=== PATIENT | male | born 1945 | race Caucasian/White ===

== ENCOUNTER 2020-02-27 11:38 | Inpatient (IN) | payer MEDICARE, OTHER ==
[~2020-02-27] VITALS: Ht 180.3 cm; Wt 104.5 kg
[2020-02-27 11:56] LABS: BASOPHILS % (AUTO) 1 % (0-10); EOSINOPHILS % (AUTO) 5 % (0-10); HEMATOCRIT 47 % (40-54); HEMOGLOBIN 15.5 G/DL (13.3-17.7); LYMPHOCYTES % (AUTO) 22 % (12-44); MEAN CORPUSCULAR HEMOGLOBIN 30 PG (25-34); MEAN CORPUSCULAR HGB CONC 33 G/DL (32-36); MEAN CORPUSCULAR VOLUME 90 FL (80-99); MEAN PLATELET VOLUME 10.6 FL (7.4-10.4); MONOCYTES % (AUTO) 10 % (0-12); NEUTROPHILS % (AUTO) 62 % (42-75); PLATELET COUNT 324 10^3/uL (130-400); WHITE BLOOD COUNT 7.4 10^3/uL (4.3-11.0)
[2020-02-27 11:57] LABS: BASOPHILS # (AUTO) 0.1 10^3/uL (0.0-0.1); EOSINOPHILS # (AUTO) 0.3 10^3/uL (0.0-0.3); LYMPHOCYTES # (AUTO) 1.6 X 10^3 (1.0-4.0); MONOCYTES # (AUTO) 0.7 X 10^3 (0.0-1.0); NEUTROPHILS # (AUTO) 4.6 X 10^3 (1.8-7.8)
[2020-02-27 12:10] LABS: INR 0.9 (0.8-1.4); PROTHROMBIN TIME PATIENT 12.6 SEC (12.2-14.7)
[2020-02-27 12:11] LABS: ALANINE AMINOTRANSFERASE 13 U/L (0-55); ALBUMIN 4.1 GM/DL (3.2-4.5); ALKALINE PHOSPHATASE 109 U/L (40-136); BILIRUBIN,TOTAL 0.4 MG/DL (0.1-1.0); BUN/CREATININE RATIO 17; CALCIUM 8.7 MG/DL (8.5-10.1); CARBON DIOXIDE 24 MMOL/L (21-32); CHLORIDE 107 MMOL/L (98-107); CREATININE SERUM 1.15 MG/DL (0.60-1.30); GFR ESTIMATED > 60; GLUCOSE 98 MG/DL (70-105); POTASSIUM 4.4 MMOL/L (3.6-5.0); SODIUM 140 MMOL/L (135-145); TOTAL PROTEIN 6.7 GM/DL (6.4-8.2)
--- NOTE | 2020-02-27 12:15 | Diagnostic Imaging Report ---
PROCEDURE: CT head without contrast. TECHNIQUE: Multiple contiguous axial images were obtained through the brain without the use of intravenous contrast. Auto Exposure Controls were utilized during the CT exam to meet ALARA standards for radiation dose reduction. INDICATION: Stroke. COMPARISON: None. FINDINGS: No intracranial hemorrhage, mass effect, hydrocephalus or extra-axial fluid collections. No CT evidence of a territorial infarction. Osseous structures are intact. Visualized paranasal sinuses and mastoids are clear. IMPRESSION: No acute intracranial CT findings. Dictated by: Dictated on workstation # [id number]
--- NOTE | 2020-02-27 13:44 | ED General ---
General Chief Complaint: Neuro-Stroke Like Symptoms Stated Complaint: STROKE LIKE SYMPTOMS Nursing Triage Note: brought to ED by EMS. began having slurred speech and aphasia and right hand weakness. EMS reports that aphasia resolved after their arrival. Was given 3 baby aspirins by family prior to ems arrival. EmS started two IV's while transporting. Blood glucose 140. Nursing Sepsis Screen: No Definite Risk Source of Information: Patient, EMS History of Present Illness Date Seen by Provider: Feb 27, 2020 Time Seen by Provider: 11:40 Initial Comments Patient is a 75-year-old male who presents with acute onset headache dysarthria and left facial droop starting approximately 9 AM this morning. Patient's symptoms have not improved. Denies headache, blurred vision, difficulty swallowing, extremity weakness or loss of sensation or loss of balance. Patient did report difficulty coordinating and use earlier today which has resolved. No history of CVA, hypertension, diabetes, CAD, arrhythmia or valvular heart disease. No other acute symptoms or complaints. Timing/Duration: 1-3 Hours Severity: Moderate Modifying Factors: improves with Other Allergies and Home Medications Allergies Coded Allergies: codeine (Verified Allergy, Unknown, rash , 02/27/20) Patient Home Medication List Home Medication List Reviewed: Yes Review of Systems Review of Systems Constitutional: no symptoms reported EENTM: no symptoms reported Respiratory: no symptoms reported Cardiovascular: no symptoms reported Gastrointestinal: no symptoms reported Genitourinary: no symptoms reported Musculoskeletal: no symptoms reported Skin: no symptoms reported Hematologic/Lymphatic: No Symptoms Reported Immunological/Allergic: no symptoms reported Past Vbemacb-Hgdjjq-Nqndxu Hx Past Med/Social Hx: Reviewed Nursing Past Med/Soc Hx Patient Social History Alcohol Use: Denies Use Recreational Drug Use: No Smoking Status: Former Smoker Former Smoker, Quit: Mar 03, 1984 2nd Hand Smoke Exposure: No Recent Foreign Travel: No Contact w/Someone Who Travel: No Recent Infectious Disease Expo: No Recent Hopitalizations: No Physical Abuse: No Sexual Abuse: No Mistreated: No Fear: No Seasonal Allergies Seasonal Allergies: No Past Medical History Surgeries: No Respiratory: No Cardiac: Yes Hypertension Neurological: No Genitourinary: Yes Benign Prostatic Hyperpl Gastrointestinal: No Musculoskeletal: No Endocrine: No HEENT: No Cancer: No Psychosocial: No Integumentary: No Physical Exam Vital Signs Vital Signs - First Documented 02/27/20 11:55 Temp 37.1 Pulse 67 Resp 20 B/P (MAP) 190/104 (132) Pulse Ox 95 Capillary Refill : Less Than 3 Seconds Height, Weight, BMI Height: '" Weight: lbs. oz. kg; BMI Method: General Appearance: No Apparent Distress, WD/WN Eyes: Bilateral Eye Normal Inspection, Bilateral Eye PERRL, Bilateral Eye EOMI HEENT: PERRL/EOMI, Normal ENT Inspection, Pharynx Normal Neck: Full Range of Motion, Non Tender, Supple Respiratory: Chest Non Tender, Lungs Clear Cardiovascular: Regular Rate, Rhythm Gastrointestinal: Non Tender, Soft Back: Normal Inspection, No CVA Tenderness Neurologic/Psychiatric: Alert, Other (dysarthria, right facial droop, NIH stroke score to per stroke assessment.) Skin: Normal Color Lymphatic: No Adenopathy, Axilla Node Tender (L) Focused Exam Sepsis Stage: Ruled Out Progress/Results/Core Measures Suspected Sepsis Recent Fever Within 48 Hours: No Infection Criteria Present: None New/Unexplained Altered Menta: No Sepsis Screen: No Definite Risk SIRS Temperature: Pulse: 67 Respiratory Rate: 20 Laboratory Tests 02/27/20 11:48: White Blood Count 7.4 Blood Pressure 190 /104 Mean: 132 Laboratory Tests 02/27/20 11:48: Creatinine 1.15, INR Comment 0.9, Platelet Count 324, Total Bilirubin 0.4 Results/Orders Lab Results Laboratory Tests Test 02/27/20 11:48 Range/Units White Blood Count 7.4 4.3-11.0 10^3/uL Red Blood Count 5.25 4.35-5.85 10^6/uL Hemoglobin 15.5 13.3-17.7 G/DL Hematocrit 47 40-54 % Mean Corpuscular Volume 90 80-99 FL Mean Corpuscular Hemoglobin 30 25-34 PG Mean Corpuscular Hemoglobin Concent 33 32-36 G/DL Red Cell Distribution Width 13.0 10.0-14.5 % Platelet Count 324 130-400 10^3/uL Mean Platelet Volume 10.6 H 7.4-10.4 FL Immature Granulocyte % (Auto) 0 % Neutrophils (%) (Auto) 62 42-75 % Lymphocytes (%) (Auto) 22 12-44 % Monocytes (%) (Auto) 10 0-12 % Eosinophils (%) (Auto) 5 0-10 % Basophils (%) (Auto) 1 0-10 % Neutrophils # (Auto) 4.6 1.8-7.8 X 10^3 Lymphocytes # (Auto) 1.6 1.0-4.0 X 10^3 Monocytes # (Auto) 0.7 0.0-1.0 X 10^3 Eosinophils # (Auto) 0.3 0.0-0.3 10^3/uL Basophils # (Auto) 0.1 0.0-0.1 10^3/uL Immature Granulocyte # (Auto) 0.0 0.0-0.1 10^3/uL Prothrombin Time 12.6 12.2-14.7 SEC INR Comment 0.9 0.8-1.4 Sodium Level 140 135-145 MMOL/L Potassium Level 4.4 3.6-5.0 MMOL/L Chloride Level 107 98-107 MMOL/L Carbon Dioxide Level 24 21-32 MMOL/L Anion Gap 9 5-14 MMOL/L Blood Urea Nitrogen 20 H 7-18 MG/DL Creatinine 1.15 0.60-1.30 MG/DL Estimat Glomerular Filtration Rate > 60 BUN/Creatinine Ratio 17 Glucose Level 98 70-105 MG/DL Calcium Level 8.7 8.5-10.1 MG/DL Corrected Calcium 8.6 8.5-10.1 MG/DL Total Bilirubin 0.4 0.1-1.0 MG/DL Aspartate Amino Transf (AST/SGOT) 17 5-34 U/L Alanine Aminotransferase (ALT/SGPT) 13 0-55 U/L Alkaline Phosphatase 109 40-136 U/L Total Protein 6.7 6.4-8.2 GM/DL Albumin 4.1 3.2-4.5 GM/DL My Orders Orders - AGATA PENA DO Cbc With Automated Diff (02/27/20 11:45) Comprehensive Metabolic Panel (02/27/20 11:45) Ct Head Wo (02/27/20 11:45) Ekg Tracing (02/27/20 11:45) Protime With Inr (02/27/20 11:45) Vital Signs/I&O 02/27/20 11:55 Temp 37.1 Pulse 67 Resp 20 B/P (MAP) 190/104 (132) Pulse Ox 95 Capillary Refill : Less Than 3 Seconds Blood Pressure Mean: 132 Departure Communication (Admissions) CT head: No acute disease per radiology report EKG: Normal sinus rhythm reviewed Lab, EKG imaging studies reviewed nondiagnostic NIH stroke score of 2. Patient does not make diagnostic criteria for administration of TPA. No progression of neurologic symptoms while in the emergency department. Vital signs remained stable. Patient accepted to [facility] per Dr. Ruiz at approximately 1300. Impression Primary Impression: Stroke Disposition: ADMITTED INPATIENT Condition: Stable Admissions Decision to Admit Reason: Admit from ER (General) Decision to Admit/Date: Feb 27, 2020 Time/Decision to Admit Time: 13:00 Departure-Patient Inst. Referrals: TK ZAMAN MD (PCP/Family) Primary Care Physician AGATA PENA DO Feb 27, 2020 13:44
[2020-02-27 15:00] VITALS: BP 180/100
--- NOTE | 2020-02-27 15:00 | NUR ---
TIGRE RUBALCAVA admitted to room 405-1, with an admitting diagnosis of POSSIBLE CVA, on 02/27/20 from ED via ED, accompanied by [facility].TIGRE RUBALCAVA introduced to surroundings, call light, bed controls, phone, TV, temperature control, lights, meal times, smoking policy, visitor policy, side rail policy, bathrooms and showers. Patient Rights given to patient in the handbook. TIGRE RUBALCAVA verbalizes understanding that [facility] [place] is not responsible for the loss or damage to any personal effects or valuables that are kept in the patients posession during their hospitalization.
[2020-02-27] MEDS ORDERED: ATEN25TA PO (15:24)
[2020-02-27] MEDS ORDERED: TAMSULOSIN PO (15:24)
[2020-02-27] MEDS ORDERED: amLODIPine 5 MG (NORVASC) TAB PO NR (15:30)
[2020-02-27] MEDS ORDERED: amLODIPine 5 MG (NORVASC) TAB ONE (15:34)
[2020-02-27] MEDS ORDERED: CATHETER FLUSH 10 ML SYR IV PRN (15:45)
[2020-02-27 15:52] VITALS: BP 180/100
[2020-02-27 15:55] VITALS: BP 180/100
[2020-02-27] MEDS: D5 1/2 NS 1000 ML IV SOLUTION 1,000 ML IV SCH (16:24)
--- NOTE | 2020-02-27 16:30 | NUR ---
PT'S ADMITTING BP WAS 188/113 BY AUTO CUFF. RN TOOK BP MANUALLY ON LEFT ARM AND GOT 180/100. DR FU NOTIFIED AND SHE ORDERED 5 MG NORVASC PO ONE TIME. RN ADMIN THIS MED. AT 1630 BP MANUALLY IS 156/100. PT DENIES HEADACHE, N/V, WEAKNESS. 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 PT DOES SAY UPPER RT LIP IS NUMB. HE WAS ABLE TO SWALLOW NORVASC PILL WITH NO DIFFICULTY, HOWEVER HE DID HAVE WATER DRIBBLE OUT OF MOUTH TO CLOTHING.
[2020-02-27 16:56] VITALS: BP 156/100
[2020-02-27] MEDS ORDERED: CALCIUM CARBONATE 500 MG (TUMS) TAB.CHEW PO PRN (17:30)
[2020-02-27] MEDS ORDERED: MELATONIN 3 MG TABLET PO PRN (17:30)
[2020-02-27] MEDS ORDERED: ACETAMINOPHEN 500 MG TAB (TYLENOL) PO PRN (17:30)
[2020-02-27] MEDS ORDERED: ALPRAZolam 0.25 MG (XANAX) TAB PO PRN (17:30)
[2020-02-27] MEDS ORDERED: LOPERAMIDE 2 MG (IMODIUM) TABLET PO PRN (17:30)
[2020-02-27] MEDS ORDERED: morphine INJ 10 MG/ML 1ML (SYR OR VIAL) IVP PRN (17:30)
[2020-02-27] MEDS ORDERED: diphenhydrAMINE 25 MG TAB (BENADRYL) PO PRN (17:30)
[2020-02-27] MEDS ORDERED: DOCUSATE SODIUM 100 MG (COLACE) CAP PO PRN (17:30)
[2020-02-27] MEDS ORDERED: HYDROcodone/APAP 5 MG/325 MG (LORTAB) TAB PO PRN (17:30)
--- NOTE | 2020-02-27 17:43 | NUR ---
TECH FROM MRI CALLED AND REPORTED THAT THERE IS NO CARRIER BLOWER AVAILABLE TONIGHT AND MRI WILL HAVE TO BE DONE IN MORNING. DR FU NOTIFIED AND SHE REPORTED SHE DID NOT NEED MRI TONIGHT AND THAT SHE ORDERED MRI FOR TOMORROW.
[2020-02-27 20:58] VITALS: BP 171/92
[2020-02-27] MEDS ORDERED: ENOXAPARIN 40 MG/0.4 ML (LOVENOX) SYR SC SCH (21:00)
[2020-02-27] MEDS: SENNA W/DOCUSATE (SENOKOT S) TABLET PO SCH (21:14)
[2020-02-28] VITALS (7 sets, daily range): BP systolic 142–182; BP diastolic 88–100
--- NOTE | 2020-02-28 00:40 | NUR ---
THIS RN CONTACTED DR FU AND NOTIFIED HER OF PATIENT BP 182/97 AND THAT PRN MORPHINE AND HYDROCODONE ORDERS REMAIN UNVERIFIED BY PHARMACY DUE TO PATIENTS CODEINE ALLERGY. PATIENT STATES HE HAS NEVER TAKEN EITHER OF THESE MEDS BEFORE, DENIES ANY PAIN AT THIS TIME. DR FU GAVE ORDERS FOR NORVASC 5MG ONCE NOW WELL CLONIDINE 0.1MG PO Q4HR PRN FOR SBP >170. NORVASC ADMINISTERED BY THIS RN, SEE MAR.
[2020-02-28] MEDS ORDERED: amLODIPine 5 MG (NORVASC) TAB PO ONE (01:00)
[2020-02-28] MEDS: D5 1/2 NS 1000 ML IV SOLUTION 1,000 ML IV SCH (01:23)
[2020-02-28] MEDS: cloNIDine 0.1 MG (CATAPRES) TAB PO PRN ×2 (03:37→08:42)
[2020-02-28 05:16] LABS: BASOPHILS # (AUTO) 0.1 10^3/uL (0.0-0.1); BASOPHILS % (AUTO) 1 % (0-10); EOSINOPHILS # (AUTO) 0.2 10^3/uL (0.0-0.3); EOSINOPHILS % (AUTO) 4 % (0-10); HEMATOCRIT 47 % (40-54); HEMOGLOBIN 15.2 g/dL (13.3-17.7); LYMPHOCYTES # (AUTO) 1.6 10^3/uL (1.0-4.0); LYMPHOCYTES % (AUTO) 26 % (12-44); MEAN CORPUSCULAR HEMOGLOBIN 30 pg (25-34); MEAN CORPUSCULAR HGB CONC 33 g/dL (32-36); MEAN CORPUSCULAR VOLUME 91 fL (80-99); MEAN PLATELET VOLUME 10.8 fL (9.0-12.2); MONOCYTES # (AUTO) 0.6 10^3/uL (0.0-1.0); MONOCYTES % (AUTO) 10 % (0-12); NEUTROPHILS # (AUTO) 3.8 10^3/uL (1.8-7.8); NEUTROPHILS % (AUTO) 60 % (42-75); PLATELET COUNT 322 10^3/uL (130-400); WHITE BLOOD COUNT 6.4 10^3/uL (4.3-11.0)
[2020-02-28 05:28] LABS: BAND NEUTROPHILS 4 %; EOSINOPHILS % (MANUAL) 2 %; LYMPHOCYTES % (MANUAL) 19 %; MONOCYTES % (MANUAL) 10 %; NEUTROPHILS % (MANUAL) 65 %; RBC MORPH NORMAL
[2020-02-28 05:36] LABS: ALANINE AMINOTRANSFERASE 11 U/L (0-55); ALBUMIN 3.7 GM/DL (3.2-4.5); ALKALINE PHOSPHATASE 103 U/L (40-136); BILIRUBIN,TOTAL 0.8 MG/DL (0.1-1.0); BUN/CREATININE RATIO 16; CALCIUM 8.4 MG/DL (8.5-10.1); CARBON DIOXIDE 23 MMOL/L (21-32); CHLORIDE 111 MMOL/L (98-107); CHOLESTEROL 186 MG/DL (< 200); CREATININE SERUM 0.95 MG/DL (0.60-1.30); GFR ESTIMATED > 60; GLUCOSE 107 MG/DL (70-105); HDL CHOLESTEROL 35 MG/DL (40-60); POTASSIUM 3.8 MMOL/L (3.6-5.0); SODIUM 142 MMOL/L (135-145); TOTAL PROTEIN 6.5 GM/DL (6.4-8.2); TRIGLYCERIDES 129 MG/DL (<150); VLDL CHOLESTEROL 26 MG/DL (5-40)
--- NOTE | 2020-02-28 06:12 | History & Physical-Hospitalist ---
History of Present Illness HPI/Chief Complaint CC: Right sided facial droop and expressive aphasia HPI: This is a 75yoWM who presented to [facility] with expressive aphasia likely from stroke. He reports no history of stroke. He has become extremely hypertensive requiring multiple medications and cardiology consultation. MRI is scheduled for 11:00. He really wants to go home. Echocardiogram completed, carotid ultrasound done, Loop recorder will be placed during the noon hour and we will heplock his IV fluid. Source: patient Exam Limitations: physical impairment Date Seen 02/28/20 Time Seen by a Provider: 09:00 Attending Physician Korina Fletcher Jay L MD Referring Physician Date of Admission Feb 27, 2020 at 15:00 Home Medications & Allergies Home Medications Reviewed patient Home Medication Reconciliation performed by pharmacy medication reconciliations archives technician and/or nursing. Patients Allergies have been reviewed. Allergies Allergies Coded Allergies codeine (Verified Allergy, Unknown, rash , 02/27/20) Past Lgzmxll-Unwsfq-Ckyupf Hx Past Med/Social Hx: Reviewed Nursing Past Med/Soc Hx, Reviewed and Corrections made Patient Social History Marrital Status: single Employed/Student: retired Alcohol Use: Denies Use Recreational Drug Use: No Smoking Status: Former Smoker Former Smoker, Quit: Mar 03, 1984 2nd Hand Smoke Exposure: No Recent Foreign Travel: No Contact w/other who traveled: No Recent Hopitalizations: No Recent Infectious Disease Expo: No Immunizations Up To Date Date of Pneumonia Vaccine: Feb 26, 2015 Seasonal Allergies Seasonal Allergies: No Past Medical History Cardiac: Hypertension Genitourinary: Benign Prostatic Hyperpl Review of Systems Constitutional: see HPI EENTM: other (drooling right side) Physical Exam Physical Exam Vital Signs Vital Signs - First Documented 02/27/20 11:55 Temp 37.1 Pulse 67 Resp 20 B/P (MAP) 190/104 (132) Pulse Ox 95 Capillary Refill : Less Than 3 Seconds Height, Weight, BMI Height: '" Weight: lbs. oz. kg; 206.30 BMI Method: General Appearance: No Apparent Distress Eyes: Right Eye Normal Inspection, Right Eye PERRL HEENT: PERRL/EOMI, Normal ENT Inspection, Pharynx Normal, Moist Mucous Membranes Neck: Full Range of Motion, Normal Inspection, Non Tender Respiratory: Chest Non Tender, Lungs Clear, Normal Breath Sounds, No Accessory Muscle Use, No Respiratory Distress Cardiovascular: Regular Rate, Rhythm, No Edema, No Gallop, No JVD, No Murmur, Normal Peripheral Pulses Gastrointestinal: Normal Bowel Sounds, No Organomegaly, No Pulsatile Mass, Non Tender, Soft Back: Normal Inspection, No CVA Tenderness, No Vertebral Tenderness Extremity: Normal Capillary Refill, Normal Inspection, Normal Range of Motion, Non Tender, No Calf Tenderness, No Pedal Edema Neurologic/Psychiatric: Alert, Oriented x3, No Motor/Sensory Deficits, Normal Mood/Affect, Aphasia, Facial Droop (right sided) Skin: Normal Color, Warm/Dry Lymphatic: No Adenopathy Results Results/Procedures Labs Laboratory Tests 02/27/20 11:48 02/28/20 04:15 Patient resulted labs reviewed. Assessment/Plan Admission Diagnosis Assessment: CVA on MRI subacute not a tPa candidate HTN severe Right facial droop Partial aphasia Plan: ASA Statin Loop recorder HTN meds Admission Status: Inpatient Order (span 2 midnights) Reason for Inpatient Admission: CVA Diagnosis/Problems Diagnosis/Problems (1) Stroke Status: Acute (2) Expressive aphasia Clinical Quality Measures DVT/VTE Risk/Contraindication: Risk Factor Score Per Nursin RFS Level Per Nursing on Admit: 4+=Very High Stroke: Date of last known well: Feb 27, 2020 KORINA FLETCHER DO Feb 28, 2020 06:12
--- NOTE | 2020-02-28 08:30 | NUR ---
ST GAVE ORDERS THAT PT CAN HAVE REGULAR CONSISTENCY DIET ALONG WITH THIN LIQUIDS. ORDER PUT IN Attune RTD AND DIETARY NOTIFIED.
[2020-02-28] MEDS: SENNA W/DOCUSATE (SENOKOT S) TABLET PO SCH (08:42)
--- NOTE | 2020-02-28 08:54 | ST Dysphagia Evaluation ---
Speech Evaluation-General Medical Diagnosis CVA Onset Date: Feb 28, 2020 Therapy Diagnosis Therapy Diagnosis: Oropharyngeal Dysphagia, Dysarthria Precautions Precautions: Aspiration Precautions/Isolations: Aspiration, Fall Prevention, Standard Precautions Referral Referring Physician: Dr. Fletcher Social History Current Living Status: Spouse Speech PLF/Current-Dysphagia Prior Level of Function Patient lives at home with his where he was independent for daily needs. Subjective Patient was very pleasant and cooperative with the Bedside Dysphagia Evaluation. Cognitive Status Patient Orientation: Person, Place, Situation Patient exhibits dysarthria making speech less intelligible. Oral Motor Skills Dentition: Natural, Tumbled, Stained Ability to Follow Directions: Good NPO pending BDE Oral Expression Ability: Moderate Impairment Voice Voice Phonatory-Based Quality: Normal Voice Pitch: Normal Voice Loudness: Normal Face Facial Symmetry: Asymmetrical Oral-Facial Assessment Labial Seal Description: Droops Right Smile: Droops Right Puff Cheeks: Reduced Strength Lingual Protrusion: Abnormal Lingual ROM: Abnormal Lingual Strength: Abnormal Pharynx Velopharyngeal Move.: Normal Volitional Dry Swallow: Yes Voluntary Cough: Yes Can Clear Throat Volitionally: Yes Dysphagia Evaluation Consistencies Presented: Regular, Thin Liquid, Mechanical Soft, Pureed Patient exhibits grossly normal range of oral function. Patient exhibits normal range of pharyngeal function. Dietary Recommendations: Regular Liquid Recommendations: Thin Swallowing Precautions: Alternate Liquids/Solids, Double Swallow, Decreased Rate of Oral Intake, Liquids from Straw, Liquids from Spoon, Small Bites and Sips, Sitting Upright 90 Degrees, Sitting 90 Degrees 30 Post Intake, Right Tongue Sweep Dysphagia Evaluation Summary Patient is a pleasant 75 y/o who admitted to the hospital last evening with stroke like symptoms. The patient was evaluated this morning for swallow ability as well as speech production. Patient was given thin liquids via 1/2 tsp x2 and small sips via straw x2 without difficulty. The patient was also given 1/2 tsp of puree, mechanical soft and regular without difficulty. The patient exhibited very mild oral residue, however he was able to clear with tongue sweep without verbal cues. The patient is recommended for regular diet level with thin liquids. This information was also provided to his nurse, Bhavana as well as written on the white board in his room. The patient exhibits right facial droop with slurred speech. He is at 70% intelligible. Patient will receive speech therapy for dysarthria. Barriers to Learning None identified Speech Short Term Goals Short Term Goals Short Term Goals 1) Patient will complete OME x20 per session with 90% accuracy given no cues. 2) Patient will complete speech exercises with 90% accuracy given no cues. Speech Personal Shopper Goals Personal Shopper Goals Patient's intelligibility will improve with speech exercises to be able to communicate effectively. Speech-Plan Patient/Family Goals Patient/Family Goals: Patient plans on returning home where he lives with his . Treatment Plan Speech Therapy Treatment Plan: Concurrent Therapy Treatment Duration: Mar 03, 2020 Frequency: 4 times per week (Patient will receive skilled ST 4-5x per week) Estimated Hrs Per Day: .25 hour per day Rehab Potential: Good Barriers to Learning: None identified Pt/Family Agrees to Plan: Yes Safety Risks/Education Teaching Recipient: Patient Teaching Methods: Discussion Response to Teaching: Verbalize Understanding Education Topics Provided: Diet level, safety strategies for oral intake, speech exercises Time Speech Therapy Time In: 08:00 Speech Therapy Time Out: 08:30 Total Billed Time: 30 Billed Treatment Time 1, DYSEVS, DYST, SPSNDCOMP, SLTS LENA Luna Feb 28, 2020 08:54
--- NOTE | 2020-02-28 09:35 | Consultation-Cardiology ---
HPI-Cardiology Cardiology Consultation: Date of Consultation 02/28/20 Time Seen by a Provider: 09:10 Date of Admission 02-27-2020 Attending Physician Korina Fu DO Admitting Physician Anastacio Donald MD Consulting Physician Taylor Mackey MD HPI: Chief Complaint: Cryptogenic CVA Mr. Canseco is a 75 yr old male admitted to 405 from the ED with acute CVA. His speech is slurred, but he states improving. He continues to have right sided facial droop. He reports yesterday he was at home when he developed a PARTIDA. He reports he tried to dial the phone at home and was unable to dial with his right hand. He states that has resolved. He reports he had some difficulty swallowing, but that has improved. He denies any c/o CP, palpitations, syncope or near syncope. No c/o LE swelling. No c/o n/v/d. No c/o fever or chills. He is currently sitting up in the recliner at the bedside eating morning meal Review of Systems-Cardiology Review of Systems Constitutional: No chills, No fever Eyes: No vision change Ears/Nose/Throat: No epistaxis, No recent hearing loss Respiratory: As described under HPI Cardiovascular: As described under HPI Gastrointestinal: No diarrhea, No nausea, No vomiting Genitourinary: No dysuria Musculoskeletal: no symptoms reported Skin: No rash on exposed areas, No ulcerations on exposed areas Psychiatric/Neurological: As described under HPI; No anxiety, No depression, No seizure, No syncope Hematologic: No bleeding abnormalities HBH-Kdjpxj-Elaexh Hx Patient Social History Alcohol Use: Denies Use Recreational Drug Use: No Smoking Status: Former Smoker 2nd Hand Smoke Exposure: No Recent Foreign Travel: No Recent Infectious Disease Expo: No Immunizations Up To Date Date of Pneumonia Vaccine: Feb 26, 2015 Past Medical History PMH As described under Assessment. Family Medical History Family Medical History: He denies any family h/o CAD or CVA. Allergies and Home Medications Allergies Coded Allergies: codeine (Verified Allergy, Unknown, rash , 02/27/20) Home Medications Amlodipine Besylate 5 Mg Tablet, 5 MG PO BID Prescribed by: KORINA FU on 02/28/20 1410 Aspirin 325 Mg Tablet.dr, 325 MG PO DAILY Prescribed by: KORINA FU on 02/28/20 1410 Atorvastatin Calcium 80 Mg Tablet, 80 MG PO HS Prescribed by: KORINA FU on 02/28/20 1410 Metoprolol Succinate 100 Mg Tab.er.24h, 100 MG PO DAILY Prescribed by: KORINA FU on 02/28/20 1410 Prazosin HCl 1 Mg Capsule, 1 MG PO HS Prescribed by: KORINA FU on 02/28/20 1410 Tamsulosin HCl 0.4 Mg Cap, 0.4 MG PO HS, (Reported) Physical Exam-Cardiology Physical Exam Vital Signs/I&O 02/29/20 00:00 Intake Total 660 ml Balance 660 ml Capillary Refill : Less Than 3 Seconds Constitutional: AAO x 3, well-developed, well-nourished HEENT: PERRL, hearing is well preserved Neck: No carotid bruit; carotid pulses are 2 + bilaterally Respiratory: No accessory muscle use, No respiratory distress; chest expansion is symmetric, chest is bilaterally symmetric, lungs clear to auscultation Cardiovascular: regular rate-rhythm; No JVD; S1 and S2 Gastrointestinal: No tender; soft, round, audible bowel sounds Extremities: no lower extremity edema bilateral Neurologic/Psychiatric: other (slurred speech, right sided facial drooping; moves upper and lower extremities without difficulty) Skin: No rash on exposed areas, No ulcerations on exposed areas Data Review Labs Radiology NAME: TIGRE CANSECO [facility] REC#: [id number] PT STATUS: ADM IN : 1945 PHYSICIAN: AGATA PENA DO ADMIT DATE: 02/27/20/ Signed Date of Exam:02/27/20 CT HEAD WO PROCEDURE: CT head without contrast. TECHNIQUE: Multiple contiguous axial images were obtained through the brain without the use of intravenous contrast. Auto Exposure Controls were utilized during the CT exam to meet ALARA standards for radiation dose reduction. INDICATION: Stroke. COMPARISON: None. FINDINGS: No intracranial hemorrhage, mass effect, hydrocephalus or extra-axial fluid collections. No CT evidence of a territorial infarction. Osseous structures are intact. Visualized paranasal sinuses and mastoids are clear. IMPRESSION: No acute intracranial CT findings. 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 Fu) Echocardiogram to eval valvular status and function Uncontrolled hypertension Monitor lab, replace electrolytes as indicated Further recs will be based on his hospital course We would like to thank Dr. Fu for this consult Clinical Quality Measures DVT/VTE Risk/Contraindication: Risk Factor Score Per Nursin RFS Level Per Nursing on Admit: 4+=Very High Stroke: Date of last known well: Feb 27, 2020 PIERRE EDMONDS Feb 28, 2020 09:35
--- NOTE | 2020-02-28 09:37 | Physical Therapy Evaluation ---
PT Evaluation-General Medical Diagnosis Admission Date Feb 27, 2020 at 15:00 Medical Diagnosis: CVA Onset Date: Feb 28, 2020 Therapy Diagnosis Therapy Diagnosis: debility Precautions Precautions/Isolations: Aspiration, Fall Prevention, Standard Precautions Referral Physician: Chance Reason for Referral: Evaluation/Treatment Medical History Pertinent Medical History: HTN Current History EMS secondary to PARTIDA and dysarthria Reviewed History: Yes Social History Home: Single Level Current Living Status: Spouse Prior Prior Level of Function SCALE: Activities may be completed with or without assistive devices. 8-Njbaebpose-yzjsomu completes the activity by him/herself with no assistance from a helper. 5-Set-up or Clean-up Assistance-helper sets up or cleans up; patient completes activity. [place] assists only prior to or following the activity. 4-Supervision or Touching Assistance-helper provides verbal cues and/or touching/steadying and/or contact guard assistance as patient completes activity. Assistance may be provided throughout the activity or intermittently. 3-Partial/Moderate Assistance-helper does LESS THAN HALF the effort. [place] lifts, holds or supports trunk or limbs, but provides less than half the effort. 2-Substantial/Maximal Assistance-helper does MORE THAN HALF the effort. [place] lifts or holds trunk or limbs and provides more than half the effort. 7-Kehgyygfi-txxdbt does ALL the effort. Patient does none of the effort to complete the activity. Or, the assistance of 2 or more helpers is required for the patient to complete the activity. If activity was not attempted, code reason: 7-Patient Refused. 9-Not Applicable-not attempted and the patient did not perform the activity before the current illness, exacerbation or injury. 10-Not Attempted due to Environmental Limitations-(lack of equipment, weather restraints, etc.). 88-Not Attempted due to Medical Conditions or Safety Concerns. Bed Mobility: 6 Transfers (B,C,W/C): 6 Gait: 6 Stairs: 6 Indoor Mobility (Ambulation): Independent Stairs: Independent Prior Devices Use: None PT Evaluation-Current Subjective Patient agrees to PT. No c/o. Objective Patient Orientation: Normal For Age Attachments: IV ROM/Strength ROM Lower Extremities bilateral LE WFL Strength Lower Extremities 5/5 grossly bilateral LE Integumentary/Posture Integumentary refer to nursing notes Bowel Incontinence: No Bladder Incontinence: No Posture WFL Neuromuscular (Tone, Coordination, Reflexes) grossly intact Sensory Vision: Functional Hearing: Functional Transfers Roll Left to Right (QC): 6 Sit to Lying (QC): 6 Lying to Sitting/Side of Bed(Q: 6 Sit to Stand (QC): 6 Chair/Ahq-vv-Uuyvk Xfer(QC): 6 Gait Does the Patient Walk?: Yes Mode of Locomotion: Walk Anticipated Mode of Locomotion: Walk Walk 10 feet (QC): 6 Walk 50 ft with 2 Turns(QC): 6 Walk 150 ft (QC): 6 Distance: 500' Gait Assistive Device: None Comments/Gait Description safe and functional with no deviation Balance Sitting Static: Normal Sitting Dynamic: Normal Standing Static: Normal Standing Dynamic: Normal Assessment/Needs 75 y.o. male, is currently at [facility] with all gross motor skills safely and does not require skilled therapy intervention. Rehab Potential: Fair PT Plan Treatment/Plan Treatment Plan: Discontinue PT, goals met Treatment Duration: Feb 28, 2020 Frequency: 1 time per week Estimated Hrs Per Day: .25 hour per day Patient and/or Family Agrees t: Yes Discharge Recommendations Therapy Discharge Recommendati: Home & Family Time/GCodes Time In: 843 Time Out: 851 Total Billed Treatment Time: 8 Total Billed Treatment 1 visit EVLowC 8 min CONRAD SMITH PT Feb 28, 2020 09:37
[2020-02-28] MEDS ORDERED: meTOprolol SUCCINATE 100 MG (TOPROL XL) TAB PO NR (09:43)
--- NOTE | 2020-02-28 09:45 | NUR ---
IRF Evaluation Determination: Denied Chart review complete and it appears patient is ambulating (500ft, no AD), transferring, and completing bed mobility with independence; therefore, patient does not require admission to an interdisciplinary rehabilitation program. Thank you for this referral.
[2020-02-28] MEDS ORDERED: TMSL.4C PO (09:55)
--- NOTE | 2020-02-28 10:17 | NUR ---
I SPOKE WITH THE PATIENT AND WENT THROUGH THE EXTERNAL MED HISTORY TO COMPLETE THIS MED REC. PT IS NOT TAKING ANY OTC MEDICATIONS AT THIS TIME.
--- NOTE | 2020-02-28 10:52 | Diagnostic Imaging Report ---
PROCEDURE: US carotid duplex, bilateral. TECHNIQUE: Multiple real-time grayscale images were obtained over the carotid arteries in various projections, bilaterally. Additional spectral analysis and color Doppler duplex images were also obtained. INDICATION: CVA. FINDINGS: There are no focally elevated velocities in either internal carotid artery. The ICA/CCA ratios are within normal limits, bilaterally. There is antegrade flow in the vertebral arteries, bilaterally. Grayscale images demonstrate minimal carotid plaque, bilaterally. IMPRESSION: Minimal bilateral carotid plaque however spectral analysis shows no evidence of a hemodynamically significant stenosis in either internal carotid artery. Parameters based on the consensus panel Munoz-Scale and Doppler ultrasound criteria published January 2003, Radiology, Volume 229. DOPPLER (peak systolic velocity M/S Right Left CCA .62 .68 ICA Proximal .61 .47 ICA Mid .56 .49 ICA Distal .49 .53 RATIO .99 .78 ECA .69 .90 VERT .45 .43 Dictated by: Dictated on workstation # [id number]
--- NOTE | 2020-02-28 11:56 | Diagnostic Imaging Report ---
PROCEDURE: MR imaging of the brain without contrast. TECHNIQUE: Multiplanar, multisequence MR imaging of the brain was performed without contrast. INDICATION: Speech difficulty and right facial droop. No prior MRI studies are available for comparison. The ventricles and sulci are within normal limits. There is an area of edema in the left frontal lobe on T2 and FLAIR sequences. This does show some diffusion restriction as well and is consistent with an acute/subacute infarct. No acute intracranial hemorrhage is seen. There are several small foci of periventricular and subcortical white matter abnormalities consistent with chronic microvascular ischemia. The normal expected flow-voids within the carotid siphons are seen. IMPRESSION: Acute/subacute infarct left frontal lobe. No acute intracranial hemorrhage is detected. Dictated by: Dictated on workstation # [id number]
[2020-02-28] MEDS ORDERED: LIDOCAINE 1% INJ 20 ML 20 ML VIAL ONE (12:12)
--- NOTE | 2020-02-28 12:54 | Consultation-Cardiology ---
HPI-Cardiology Cardiology Consultation: Date of Consultation 02/28/20 Time Seen by a Provider: 12:35 Date of Admission Attending Physician Korina Fletcher DO Admitting Physician Anastacio Donald MD Consulting Physician YAHAIRA SCHULTZ MD, MA, FACP, FACC, [facility], CCDS Physician requesting consult: Dr Fletcher HPI: Chief Complaint: Reason for consultation: Cryptogenic CVA HPI Mr. Canseco is a 75 yr old male admitted to 405 from the ED with acute CVA. His speech is slurred, but he states improving. He continues to have right sided facial droop. He reports yesterday he was at home when he developed a PARTIDA. He reports he tried to dial the phone at home and was unable to dial with his right hand. He states that has resolved. He reports he had some difficulty swallowing, but that has improved. He denies any c/o CP, palpitations, syncope or near syncope. No c/o LE swelling. No c/o n/v/d. No c/o fever or chills. He is currently sitting up in the recliner at the bedside eating morning meal Review of Systems-Cardiology Review of Systems Constitutional: No chills, No fever Eyes: No vision change Ears/Nose/Throat: No epistaxis, No recent hearing loss Respiratory: As described under HPI Cardiovascular: As described under HPI Gastrointestinal: No diarrhea, No nausea, No vomiting Genitourinary: No dysuria Musculoskeletal: no symptoms reported Skin: No rash on exposed areas, No ulcerations on exposed areas Psychiatric/Neurological: As described under HPI; No anxiety, No depression, No seizure, No syncope Hematologic: No bleeding abnormalities YIA-Inblxl-Hshmum Hx Patient Social History Alcohol Use: Denies Use Recreational Drug Use: No Smoking Status: Former Smoker 2nd Hand Smoke Exposure: No Recent Foreign Travel: No Recent Infectious Disease Expo: No Immunizations Up To Date Date of Pneumonia Vaccine: Feb 26, 2015 Past Medical History PMH As described under Assessment. Family Medical History Family Medical History: He denies any family h/o CAD or CVA. Allergies and Home Medications Allergies Coded Allergies: codeine (Verified Allergy, Unknown, rash , 02/27/20) Home Medications Atenolol 25 Mg Tablet, 50 MG PO DAILY, (Reported) TAKES 2 (25MG) TABLETS Tamsulosin HCl 0.4 Mg Cap, 0.4 MG PO HS, (Reported) Patient Home Medication List Home Medication List Reviewed: Yes Physical Exam-Cardiology Physical Exam Vital Signs/I&O 02/28/20 02/28/20 02/28/20 04:14 07:48 08:00 Temp 36.0 36.2 Pulse 74 76 Resp 20 16 B/P (MAP) 175/97 (123) 178/93 (121) Pulse Ox 96 95 O2 Delivery Room Air Room Air Room Air Capillary Refill : Less Than 3 Seconds Constitutional: AAO x 3, well-developed, well-nourished HEENT: PERRL, hearing is well preserved Neck: No carotid bruit; carotid pulses are 2 + bilaterally Respiratory: No accessory muscle use, No respiratory distress; chest expansion is symmetric, chest is bilaterally symmetric, lungs clear to auscultation Cardiovascular: regular rate-rhythm; No JVD; S1 and S2 Gastrointestinal: No tender; soft, round, audible bowel sounds Extremities: no lower extremity edema bilateral Neurologic/Psychiatric: other (slurred speech, right sided facial drooping; moves upper and lower extremities without difficulty) Skin: No rash on exposed areas, No ulcerations on exposed areas Data Review Labs Laboratory Tests 02/28/20 04:15: White Blood Count 6.4, Red Blood Count 5.14, Hemoglobin 15.2, Hematocrit 47, Mean Corpuscular Volume 91, Mean Corpuscular Hemoglobin 30, Mean Corpuscular Hemoglobin Concent 33, Red Cell Distribution Width 13.1, Platelet Count 322, M mahi Platelet Volume 10.8, Immature Granulocyte % (Auto) 0, Neutrophils (%) (Auto) 60, Lymphocytes (%) (Auto) 26, Monocytes (%) (Auto) 10, Eosinophils (%) (Auto) 4, Basophils (%) (Auto) 1, Neutrophils # (Auto) 3.8, Lymphocytes # (Auto) 1.6, Monocytes # (Auto) 0.6, Eosinophils # (Auto) 0.2, Basophils # (Auto) 0.1, Immature Granulocyte # (Auto) 0.0, Neutrophils % (Manual) 65, Lymphocytes % (Manual) 19, Monocytes % (Manual) 10, Eosinophils % (Manual) 2, Band Neutrophils 4, Blood Morphology Comment NORMAL, Sodium Level 142, Potassium Level 3.8, Chloride Level 111H, Carbon Dioxide Level 23, Anion Gap 8, Blood Urea Nitrogen 15, Creatinine 0.95, Estimat Glomerular Filtration Rate > 60, BUN/Creatinine Ratio 16, Glucose Level 107H, Calcium Level 8.4L, Corrected Calcium 8.6, Total Bilirubin 0.8, Aspartate Amino Transf (AST/SGOT) 14, Alanine Aminotransferase (ALT/SGPT) 11, Alkaline Phosphatase 103, Total Protein 6.5, Albumin 3.7, Trigl ycerides Level 129, Cholesterol Level 186, LDL Cholesterol Direct 149H, VLDL Ch olesterol 26, HDL Cholesterol 35L Laboratory Tests 02/27/20 11:48 02/28/20 04:15 A/P-Cardiology Assessment/Admission Diagnosis 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 Fletcher) Echocardiogram to eval valvular status and function BB for uncontrolled hypertension Monitor lab, replace electrolytes as indicated Further recs will be based on his hospital course We would like to thank Dr. Fletcher for this consult Clinical Quality Measures DVT/VTE Risk/Contraindication: Risk Factor Score Per Nursin RFS Level Per Nursing on Admit: 4+=Very High Stroke: Date of last known well: Feb 27, 2020 YAHAIRA SCHULTZ MD FACP FAC CCDS Feb 28, 2020 12:54
--- NOTE | 2020-02-28 13:15 | NUR ---
SUSAN ZENG, IS MAIN POINT OF CONTACT FOR . SHE DID CALL THIS AM IN REGARDS OF PTS MRI AND UPDATES. AT THE TIME WE DID NOT HAVE AN ETA FOR MRI. RN DID LET HER KNOW THAT NIGHT RN, ANAND, REPORTED THAT PT WAS IMPROVED RE RT HAND STRENGTH AND SPEECH IS A LITTLE BIT MORE UNDERSTANDABLE. AZUCENA CONTACTED PRIOR TO MRI (WHICH HAPPENED AROUND 1100) AND ABOUT LOOP RECORDER. EDUCATION GIVEN TO AZUCENA ABOUT DEVICE AND APPOINTMENTS NEEDED THIS WEEK TO HAVE DRESSING REMOVED WITH DR DILLARD NURSE AND IN TWO WEEKS FOR F/U WITH DR SCHULTZ. PT IS NOW BACK FROM BOTH MRI AND LOOP RECORDER IMPLANTATION AND HAS NO COMPLAINTS. DR FU NOTIFIED BY THIS RN THAT HIS MRI RESULTS WERE BACK, AWAITING WORD BACK FROM AND D/C INFO. JAG JAY, WITH DR SCHULTZ, SAID HE WILL BE OK'D TO GO HOME ON CARDIAC'S SIDE AFTER PROCEDURE. DR FU AWARE.
--- NOTE | 2020-02-28 13:38 | Occ Therapy Progress Note ---
Therapy Progress Note OT orders received and chart reviewed. OT visited with pt who feels like he is at his PLOF. Pt is sitting up on EOB, eating lunch independently. BUE AROM WFL and pt has no concerns with completing ADLs upon d/c. Pt has been up in his room and taken self to bathroom independently. No skilled OT services indicated at this time due to pt being at PLOF and independent with ADLs. D/C from OT at this time. ESTER BROWNE OT Feb 28, 2020 13:38
[2020-02-28] MEDS ORDERED: ASPI325T32 PO (14:10)
[2020-02-28] MEDS ORDERED: MTP100TCR PO (14:10)
[2020-02-28] MEDS ORDERED: ATOR80TA76 PO (14:10)
[2020-02-28] MEDS ORDERED: PRAZ1CAP2 PO (14:10)
[2020-02-28] MEDS ORDERED: AMLO5TAB4 PO (14:10)
--- NOTE | 2020-02-28 14:41 | NUR ---
SUSAN ZENG NOTIFIED OF D/C. [place] AR[place] 1500 AND THEN STOPPING IN [place] AT PHARMACY TO DEAF INTERPRETER MEDICATIONS. THIS RN ICING MIXER CALLED AND LEFT MESSAGE AT DR DILLARD OFFICE TO GET APPOINTMENT FOR NURSE ONLY VISIT TO REMOVE DRESSING FROM LOOP RECORDER AND TO MAKE A FOLLOW UP FOR DR VISIT.
[2020-02-28] MEDS ORDERED: TAMSULOSIN 0.4 MG (FLOMAX) CAP PO SCH (21:00)
--- NOTE | 2020-02-28 21:41 | OPERATIVE REPORT ---
DATE OF SERVICE: 02/28/2020 PREOPERATIVE DIAGNOSIS: Cryptogenic stroke. POSTOPERATIVE DIAGNOSIS: Cryptogenic stroke. PROCEDURE PERFORMED: Implantable loop recorder implantation. DESCRIPTION OF PROCEDURE: The patient is a 75-year-old gentleman who has been admitted to Dr. Fletcher's service with the stroke. Occult atrial fibrillation is a concern. Implantable loop recorder implantation was carried out after having obtained an informed consent. The left prepectoral area was prepared and draped in the usual sterile fashion. Lidocaine 1% was used for local anesthesia. The tools provided with the Bioceptive Reveal LINQ device were used to make a subcutaneous pocket anterior to the left fourth intercostal space into which the device was placed and the wound edges were closed using Dermabond and Steri-Strips. The serial number of the device [id number]. He tolerated the procedure well. Job ID: [id number] DocumentID: [id number] Dictated Date: 02/28/2020 12:48:51 Vice President Of Human Resources Date: 02/28/2020 21:40:17 Dictated By: YAHAIRA SCHULTZ MD, MA, FACP, FACC,
[2020-02-29] MEDS ORDERED: meTOprolol SUCCINATE 100 MG (TOPROL XL) TAB PO SCH (09:00)
== END 2020-02-28 16:20 | disposition home or self-care (01) | DRG 42 ==
LOC: ER FS 11:40 → 4TH 15:00
PROVIDERS: ADMIT Internal Medicine; ATTEND Internal Medicine
PROC: 0JH632Z Insertion of Monitoring Device into Chest Subcutaneous Tissue and Fascia, Percutaneous Approach (ICD-10-PCS; principal; 2020-02-28)
DX: I63.9 Cerebral infarction, unspecified (principal); R47.1 Dysarthria and anarthria; R47.01 Aphasia; G83.21 Monoplegia of upper limb affecting right dominant side; R29.810 Facial weakness; R29.702 NIHSS score 2; I10 Essential (primary) hypertension; N40.0 Benign prostatic hyperplasia without lower urinary tract symptoms; Z87.891 Personal history of nicotine dependence; Z88.6 Allergy status to analgesic agent
CPT/HCPCS: 33285; 36415; 70450; 70551; 80053; 80061; 85007; 85025; 85027; 85610; 93005; 93880

== ENCOUNTER → 2020-11-13 | Outpatient (CLI) | payer MEDICARE ==
[~2020-11-13] MED LIST: ALBU18HF2 IH; AMLO-250 PO; AMLO5TAB4 PO; APIX5TAB PO; ASPI325T32 PO; ATEN25TA PO; ATOR80TA76 PO; BENZ-36 PO; CATHETER FLUSH 10 ML SYR IV PRN; DEXA4TAB66 PO; HOLD METFORMIN - RECEIVED CONTRAST 20 ML VIAL IV SCH; IOHEXOL 350 MG/ML 100 ML (OMNIPAQUE 350) VIAL IV ONE; MTP100TCR PO; NS 100 ML (IVPB) BAG IV ONE; PRAZ1CAP PO; PRAZ1CAP2 PO; TAMSULOSIN PO; TMSL.4C PO
[2020-11-13 09:10] LABS: CREATININE SERUM 1.18 MG/DL (0.60-1.30); POTASSIUM 4.3 MMOL/L (3.6-5.0)
[2020-11-13 09:11] LABS: ALBUMIN 4.1 GM/DL (3.2-4.5); BILIRUBIN,TOTAL 0.6 MG/DL (0.1-1.0); CALCIUM 8.7 MG/DL (8.5-10.1); TOTAL PROTEIN 6.9 GM/DL (6.4-8.2)
--- NOTE | 2020-11-13 09:42 | Diagnostic Imaging Report ---
PROCEDURE: CT head with and without contrast. TECHNIQUE: Multiple contiguous axial images were obtained through the brain before and after the administration of intravenous contrast. Auto Exposure Controls were utilized during the CT exam to meet ALARA standards for radiation dose reduction. INDICATION: Dizziness EXAMINATION: Multiple contiguous axial CT images of the head were obtained prior to and after intravenous administration of contrast. FINDINGS: Ventricles and sulci are within normal limits. There is no intracranial hemorrhage or abnormal mass effect. No abnormal focus of contrast enhancement is identified. IMPRESSION: Unremarkable CT of the head without and with intravenous contrast. Dictated by: Dictated on workstation # [id number]
== END ==
LOC: RAD FS 08:31
PROVIDERS: ATTEND Family Medicine
DX: R42 Dizziness and giddiness (principal); Z86.73 Personal history of transient ischemic attack (TIA), and cerebral infarction without residual deficits
CPT/HCPCS: 36415; 70470; 80053